=== PATIENT | female | born 1970 | race Caucasian/White ===

== ENCOUNTER 2017-10-05 18:55 | Emergency (ER) | payer BC ==
[~2017-10-05] VITALS: Ht 175.3 cm; Wt 90.7 kg
[2017-10-05 19:07] VITALS: BP 132/82
--- NOTE | 2017-10-05 19:20 | NUR ---
KRIS HERNANDEZ, KRIS IN ROOM WITH PORTABLE XRAY AT THIS TIME.
--- NOTE | 2017-10-05 19:25 | DIREP ---
PROCEDURE:XRAY ANKLE MIN 3VWS-LT COMPARISON:[facility], , XRAY FOOT MIN 3 VWS-LT, 10/05/2017, 06:49 PM. INDICATIONS:Fall FINDINGS: BONES:No acute fractures. JOINTS:Normal. SOFT TISSUES:Mild swelling laterally. OTHER:No additional findings. CONCLUSION:Mild soft tissue swelling. No acute left ankle fracture. Dictated by: Carlo Pop M.D. on 10/05/2017 at 07:23 PM
--- NOTE | 2017-10-05 19:26 | DIREP ---
PROCEDURE:XRAY FOOT MIN 3 VWS-LT COMPARISON:[facility], , XRAY ANKLE MIN 3VWS-LT, 10/05/2017, 06:49 PM. INDICATIONS:Fall FINDINGS: BONES:Normal. JOINTS:Normal. SOFT TISSUES:Normal. OTHER:No additional findings. CONCLUSION:Normal examination. Dictated by: Carlo Pop M.D. on 10/05/2017 at 07:24 PM
--- NOTE | 2017-10-05 19:32 | ER.PDOC ---
General Chief Complaint: Extremities Stated Complaint: FOOT INJURY Time seen by MD: 19:10 Source: patient Exam Limitations: no limitations History of Present Illness Initial Comments Pt twisted left foot three days ago, is swollen and tender to ambulation Onset: last week Where: home Severity: moderate Context: twist Modifying Factors: pain on movement Allergies: Coded Allergies: metronidazole (Unverified Allergy, Unknown, WHOLE BODY GOES NUMB, 10/05/17) Past Medical History Medical History: thyroid disease Surgical History: back, , hysterectomy LMP (females 10-50): hysterectomy Social History Smoking: non-smoker Alcohol Use: none Drug Use: none Review of Systems Constitutional: no symptoms reported EENTM: no symptoms reported Respiratory: no symptoms reported Cardiovascular: no symptoms reported Gastrointestinal: no symptoms reported Genitourinary: no symptoms reported Musculoskeletal: see HPI Skin: no symptoms reported Psychiatric/Neurological: no symptoms reported Physical Exam General Appearance: Alert, No Apparent Distress Foot: tenderness (lateral aspect), swelling, ecchymosis Ankle: nml inspection, non-tender, nml ROM, no joint swelling, skin intact Gait: normal Neuro: sensation nml, motor nml Vascular: no vascular compromise Tendons: tendon function nml Leg/Knee/Thigh: uninjured above ankle Skin: warm/dry Head/ENT: nml inspection, pharynx nml Neck/Back: nml inspection, non-tender Resp/CVS: no resp distress Abdomen: non-tender, no organomegaly Course Vitals & review Data Vital Sign - Last 24 Hours 10/05/17 10/05/17 10/05/17 19:02 19:02 19:07 Temp 98.2 98.2 98.2 Pulse 97 84 84 Resp B/P (MAP) 132/82 (99) Pulse Ox 93 93 O2 Delivery Room Air Room Air Departure Time of Disposition: 19:32 Disposition: 01 HOME, SELF-CARE Impression: Primary Impression: Ankle sprain Additional Impression: Foot sprain Condition: Stable Patient Instructions: Ankle Sprain, Foot Sprain Referrals: PCP,UNKNOWN (PCP) PRIMARY CARE PROVIDER Duration or Time Spent with Pa: 10 Problem Qualifiers BOUBACAR BEST MD Oct 05, 2017 19:32
[2017-10-05 19:58] VITALS: BP 132/82
== END 2017-10-05 19:50 | disposition home or self-care (01) ==
LOC: ER 18:55
DX: S93.402A Sprain of unspecified ligament of left ankle, initial encounter (principal); S93.602A Unspecified sprain of left foot, initial encounter; E07.9 Disorder of thyroid, unspecified; Z88.8 Allergy status to other drugs, medicaments and biological substances; Z90.710 Acquired absence of both cervix and uterus; X50.1XXA Overexertion from prolonged static or awkward postures, initial encounter; Y93.89 Activity, other specified; Y92.098 Other place in other non-institutional residence as the place of occurrence of the external cause; Y99.8 Other external cause status
CPT/HCPCS: 99284; 73610-LT; 73630-LT